=== PATIENT | female | born 1985 | race Caucasian/White ===

== ENCOUNTER 2023-01-12 00:10 | Day surgery (SDC) | payer OTHER ==
[2023-01-12 00:55] VITALS: BMI 31.9
[2023-01-12] MEDS ORDERED: hydrALAZINE 20 MG/ML VIAL SLOW IVP PRN (01:16)
[2023-01-12] MEDS ORDERED: Lactated Ringer's 1,000 ML IV SCH (01:30)
== END 2023-01-12 04:18 | disposition home or self-care (01) ==
LOC: CSHLD/OP 00:10
PROVIDERS: ATTEND Obstetrics & Gynecology
DX: O47.03 False labor before 37 completed weeks of gestation, third trimester (principal); O30.043 Twin pregnancy, dichorionic/diamniotic, third trimester; Z79.899 Other long term (current) drug therapy; Z3A.34 34 weeks gestation of pregnancy
CPT/HCPCS: 96360; 99283

== ENCOUNTER 2023-01-27 05:41 | Inpatient (IN) | payer OTHER ==
[2023-01-26 12:41] LABS: Hematocrit 42.7 % (34.9-44.5); Platelet Count 186 10x3/uL (150-450)
[2023-01-26 13:06] LABS: Syphilis Antibody Nonreactive (Nonreactive); Syphilis Antibody Index 0.09 S/CO (<1.00 Non-Reactive)
[2023-01-26 13:08] LABS: HBSAg Index 0.15 S/CO (0-0.99); Hep B Surf Ag Non-Reactive S/CO (NonReactive)
[2023-01-27] MEDS ORDERED: Promethazine HCl 25 MG/ML VIAL IM PRN ×3 (05:53→12:08)
[2023-01-27] MEDS ORDERED: Methylergonovine 0.2 MG/ML VIAL IM PRN (05:53)
[2023-01-27] MEDS ORDERED: CEFAZOLIN 2 GM in Sodium Chloride 0.9% 100 ML IVPB SCH (05:53)
[2023-01-27] MEDS ORDERED: Bicitra 30 ML UDCUP PO PRN (05:53)
[2023-01-27] MEDS ORDERED: Ondansetron PF 4 MG/2 ML Vial IVP PRN ×3 (05:53→11:14)
[2023-01-27] MEDS ORDERED: Tranexamic Acid 1,000 MG/10 ML VIAL IVP PRN (05:53)
[2023-01-27] MEDS ORDERED: Misoprostol 200 MCG TAB PR PRN (05:53)
[2023-01-27] MEDS ORDERED: Carboprost 250 MCG/ML AMP IM PRN (05:53)
[2023-01-27] MEDS ORDERED: hydrALAZINE 20 MG/ML VIAL SLOW IVP PRN ×2 (05:53→11:33)
[2023-01-27] MEDS ORDERED: Diphenoxylate HCl/Atropine Tablet PO PRN ×2 (05:53)
[2023-01-27] MEDS ORDERED: Famotidine/PF 20 mg/2ml Vial SLOW IVP PRN (05:53)
[2023-01-27] MEDS ORDERED: Oxytocin 30 units/NS 500 ML 500 ML IV SCH (06:00)
[2023-01-27] MEDS ORDERED: Lactated Ringer's 1,000 ML IV SCH (06:00)
[2023-01-27 06:35] VITALS: BMI 32.5
[2023-01-27] MEDS ORDERED: Phytonadione Neonatal 1 MG/0.5 ML AMP ONE (07:08)
[2023-01-27] MEDS ORDERED: Morphine PF 10 MG/10 ML VIAL ONE (07:22)
[2023-01-27] MEDS ORDERED: Ondansetron PF 4 MG/2 ML Vial ONE (07:22)
[2023-01-27] MEDS ORDERED: fentaNYL 50 mcg/mL 1 mL Vial ONE (07:22)
[2023-01-27] MEDS ORDERED: Sodium Bicarbonate 2.5 MEQ/5 ML VIAL ONE (07:22)
[2023-01-27] MEDS ORDERED: Ketorolac Tromethamine 30 MG/ML VIAL ONE (07:22)
[2023-01-27] MEDS ORDERED: Dexamethasone 4 mg/ml Vial ONE (07:22)
[2023-01-27] MEDS ORDERED: Oxytocin 10 UNITS/ML VIAL ONE (07:23)
[2023-01-27] MEDS ORDERED: Phenylephrine 40 MG/NS 250 ML 250 ML ONE (07:23)
[2023-01-27] MEDS ORDERED: fentaNYL 50 mcg/mL 1 mL Vial SLOW IVP PRN (11:14)
[2023-01-27] MEDS ORDERED: Naloxone HCl 0.4 mg/ml Vial IV PRN (11:14)
[2023-01-27] MEDS ORDERED: Naloxone HCl 0.4 mg/ml Vial IVP PRN ×2 (11:14)
[2023-01-27] MEDS ORDERED: diphenhydrAMINE 50 MG/ML VIAL IVP PRN (11:14)
[2023-01-27] MEDS ORDERED: Promethazine HCl 25 MG SUPP PR PRN (11:14)
[2023-01-27] MEDS ORDERED: Moisturizing Cream (Eucerin) 113 GM JAR TOP PRN (11:14)
[2023-01-27] MEDS ORDERED: Meperidine HCl/PF 25 MG/ML VIAL SLOW IVP PRN (11:14)
[2023-01-27] MEDS ORDERED: Communication Order-Pharmacy FS PRN (11:15)
[2023-01-27] MEDS ORDERED: Acetaminophen 325 MG TAB PO PRN (11:33)
[2023-01-27] MEDS ORDERED: Lanolin Ointment 7 GM TUBE TOP PRN (11:33)
[2023-01-27] MEDS ORDERED: Bisacodyl 10 MG SUPP PR PRN (11:33)
[2023-01-27] MEDS ORDERED: diphenhydrAMINE 25 MG CAP PO PRN (11:33)
[2023-01-27] MEDS ORDERED: Simethicone Chewable 80 MG TAB PO PRN (11:33)
[2023-01-27] MEDS ORDERED: Boostrix 0.5 ML (Tdap) VIAL (>/=7 yrs of age) IM ONE (12:00)
[2023-01-27] MEDS ORDERED: Morphine 2 MG/ML VIAL SLOW IVP SCH (12:45)
[2023-01-27] MEDS: Ketorolac Tromethamine 30 MG/ML VIAL IVP SCH ×2 (14:25→21:54)
[2023-01-27] MEDS: Ibuprofen 800 MG TAB PO SCH (14:58)
[2023-01-27] MEDS: Docusate 100 MG CAP PO SCH (21:54)
[2023-01-27] MEDS ORDERED: HYDROcodone/Acetaminophen 5/325 mg Tablet PO PRN (23:15)
[2023-01-28] MEDS: Ketorolac Tromethamine 30 MG/ML VIAL IVP SCH ×2 (04:34→09:04)
[2023-01-28 04:39] LABS: Hematocrit 29.9 % (34.9-44.5); Hemoglobin 10.6 g/dL (12.0-15.5); Mean Corpuscular HGB CONC 35.5 g/dL (32.0-36.0); Mean Corpuscular Hemoglobin 32.7 pg (27.0-33.0); Mean Corpuscular Volume 92.3 fl (81.6-98.3); Mean Platelet Volume 11.7 fl (7.4-10.4); Platelet Count 150 10x3/uL (150-450); RBC Distribution Width 13.3 % (11.5-14.5); Red Blood Cell (RBC) Count 3.24 10x6/uL (3.90-5.03); White Blood Cell (WBC) Count 13.2 10x3/uL (3.5-10.5)
[2023-01-28] MEDS: Ibuprofen 800 MG TAB PO SCH ×3 (07:26→20:55)
[2023-01-28] MEDS: Prenatal Vitamin 1 TAB PO SCH (09:01)
[2023-01-28] MEDS: HYDROcodone/Acetaminophen 5/325 mg Tablet PO PRN ×3 (09:01→17:40)
[2023-01-28] MEDS: Docusate 100 MG CAP PO SCH ×2 (09:01→20:55)
[2023-01-29] MEDS: HYDROcodone/Acetaminophen 5/325 mg Tablet PO PRN ×2 (01:32→11:03)
[2023-01-29] MEDS: Ibuprofen 800 MG TAB PO SCH ×2 (05:32→13:28)
[2023-01-29 07:54] VITALS: BP 119/82; TEMP 98.3
[2023-01-29] MEDS: Prenatal Vitamin 1 TAB PO SCH (09:08)
[2023-01-29] MEDS: Docusate 100 MG CAP PO SCH (09:08)
== END 2023-01-29 15:40 | disposition home or self-care (01) | DRG 788 ==
LOC: EEVIPCON 05:41 → CSHLD 05:41 → CSHPP 11:30
PROVIDERS: ADMIT Obstetrics & Gynecology; ATTEND Obstetrics & Gynecology
PROC: 10D00Z1 Extraction of Products of Conception, Low, Open Approach (ICD-10-PCS; principal; 2023-01-27)
PROC: 3E0234Z Introduction of Serum, Toxoid and Vaccine into Muscle, Percutaneous Approach (ICD-10-PCS; 2023-01-27)
DX: O30.033 Twin pregnancy, monochorionic/diamniotic, third trimester (principal); E03.9 Hypothyroidism, unspecified; O99.284 Endocrine, nutritional and metabolic diseases complicating childbirth; Z79.890 Hormone replacement therapy; Z3A.36 36 weeks gestation of pregnancy; Z37.2 Twins, both liveborn; Z67.41 Type O blood, Rh negative; Z23 Encounter for immunization
CPT/HCPCS: 36415; 51702; 85014; 85018; 85027; 85049; 85461; 86780; 86850; 86870; 86900; 86901; 86922; 87340; 90384; 96372; J1100; J1885; J2274; J2405; J2550; J2590; J3010